=== PATIENT | male | born 1945 | race Caucasian/White ===

== ENCOUNTER 2016-08-30 09:10 | Outpatient (CLI) | payer MEDICARE, OTHER | END 2016-08-30 09:11 | disposition home or self-care (01) | DX: Z53.9 Procedure and treatment not carried out, unspecified reason (principal) ==

== ENCOUNTER 2016-09-02 07:46 | Outpatient (CLI) | payer MEDICARE, OTHER | END 2016-09-02 07:47 | disposition home or self-care (01) | DX: R42 Dizziness and giddiness (principal); Z12.5 Encounter for screening for malignant neoplasm of prostate | CPT/HCPCS: 80053; 85025; G0103 ==

== ENCOUNTER 2017-04-02 12:22 | Outpatient (CLI) | payer MEDICARE, OTHER | END 2017-04-02 12:23 | disposition home or self-care (01) | LOC: LAB 12:22 | PROVIDERS: ATTEND Family Medicine | DX: R97.20 Elevated prostate specific antigen [PSA] (principal) | CPT/HCPCS: 36415; 84153 ==

== ENCOUNTER 2017-12-23 04:06 | Emergency (ER) | payer MEDICARE, OTHER ==
[2017-12-23 04:20] VITALS: BP 157/86
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
== END 2017-12-23 04:29 | disposition home or self-care (01) ==
LOC: ED 04:06
DX: T78.40XA Allergy, unspecified, initial encounter (principal); X58.XXXA Exposure to other specified factors, initial encounter
CPT/HCPCS: 99282; 99283

== ENCOUNTER 2017-12-31 15:03 | Outpatient (CLI) | payer MEDICARE, OTHER | END 2017-12-31 15:04 | disposition home or self-care (01) | LOC: LAB 15:03 | PROVIDERS: ATTEND Family Medicine | DX: N40.1 Benign prostatic hyperplasia with lower urinary tract symptoms (principal) | CPT/HCPCS: 36415; 84153 ==

== ENCOUNTER 2019-01-17 10:41 | Emergency (ER) | payer MEDICARE, OTHER ==
[2019-01-17 11:09] LABS: BASOPHILS % (AUTO) 0.7 %; EOSINOPHILS # (AUTO) 0.3 10^3/uL (0.0-0.7); EOSINOPHILS % (AUTO) 4.5 %; HGB - HEMOGLOBIN 13.8 g/dL (14.0-18.0); LYMPHOCYTES # (AUTO) 1.4 10^3/uL (1.5-3.5); MEAN CORPUSCULAR HEMOGLOBIN 28.8 pg (27.0-31.0); MEAN CORPUSCULAR HGB CONC 32.1 g/dL (32.0-36.0); MEAN CORPUSCULAR VOLUME 89.8 fL (80.0-94.0); MEAN PLATELET VOLUME 8.6 fL (7.4-11.4); MONOCYTES # (AUTO) 0.6 10^3/uL (0.0-1.0); NEUTROPHILS # (AUTO) 3.3 10^3/uL (1.5-6.6); NEUTROPHILS % (AUTO) 59.4 %; PLT - PLATELET COUNT 247 10^3/uL (130-450); RED BLOOD COUNT 4.79 10^6/uL (4.70-6.10); RED CELL DISTRIBUTION WIDTH 13.2 % (12.0-15.0); WHITE BLOOD COUNT 5.6 x10^3/uL (4.8-10.8)
--- NOTE | 2019-01-17 11:29 | ED Physician Documentation ---
PD HPI DYSPNEA - Stated complaint Stated Complaint: AFIB - Chief complaint Chief Complaint: Cardiac - History obtained from History obtained from: Patient - History of Present Illness Timing - onset: Today (he was found to be in atrial flutter today when arrived for cardiac rehab. Sent to ER for evaluation. He is feeling okay, with maybe some lightheadedness. He has had feeling of lightheadedness for minutes at a time over the past few weeks. He is 5 weeks s/p CABG at [facility] and doing well. Has had cardiac rehab for the past 3 weeks.), Unknown Timing - onset during: Light activity Timing - details: Gradual onset (not sure of onset as he does not really feel the heart rate going fast.), Still present Inciting event(s): No: URI Improved by: Rest Worsened by: Exertion (he does feel slightly lightheaded with activity this morning.) Associated symptoms: Chest pain / discomfort (sternal skeletal pain since surgery.). No: Fever, Cough, Wheezing, Bilateral edema Similar symptoms before: No diagnosis (has had lightheaded at times the past few weeks) Review of Systems Constitutional: denies: Fever, Chills Nose: denies: Rhinorrhea / runny nose, Congestion Throat: denies: Sore throat Cardiac: denies: Palpitations Respiratory: denies: Dyspnea, Cough GI: denies: Abdominal Pain, Nausea, Vomiting, Diarrhea Musculoskeletal: denies: Extremity swelling Neurologic: denies: Focal weakness, Numbness, Near syncope PD PAST MEDICAL HISTORY - Past Medical History Cardiovascular: Hypertension, Angina Respiratory: None Neuro: None Endocrine/Autoimmune: None - Past Surgical History Cardiovascular: CABG (5 weeks ago) - Present Medications Home Medications: Ambulatory Orders Medication Instructions Recorded Confirmed Amiodarone HCl 200 mg PO DAILY #30 tablet 01/17/19 Amiodarone HCl 400 mg PO BID #14 tablet 01/17/19 Apixaban [Eliquis] 5 mg PO DAILY #30 tablet 01/17/19 Clopidogrel [Plavix] 75 mg PO DAILY 01/17/19 01/17/19 Levothyroxine [Synthroid] 100 mcg PO DAILY 01/17/19 01/17/19 - Allergies Allergies/Adverse Reactions: Allergies Allergy/AdvReac Type Severity Reaction Status Date / Time aspirin Allergy Hives Verified 01/17/19 10:49 diclofenac [From Voltaren] Allergy Rash Verified 01/17/19 10:49 peanut Allergy Hives Verified 01/17/19 10:49 - Social History Does the pt smoke?: No Smoking Status: Never smoker PD ED PE NORMAL - Vitals Vital signs reviewed: Yes - General General: Alert and oriented X 3, Well developed/nourished - Neck Neck: Supple, no meningeal sign, No adenopathy - Cardiac Cardiac: No murmur, Other (healing chestwall incision without infection). No: RRR (regular, slightly fast) - Respiratory Respiratory: Clear bilaterally - Abdomen Abdomen: Soft, Non tender - Derm Derm: Normal color, Warm and dry - Neuro Neuro: Alert and oriented X 3, No motor deficit, Normal speech Results - Vitals Vitals: Vital Signs - 24 hr 01/17/19 01/17/19 01/17/19 10:46 11:30 12:06 Temperature 35.5 C L Heart Rate 97 95 89 Respiratory 19 18 18 Rate Blood Pressure 115/77 111/76 104/85 H O2 Saturation 100 98 99 01/17/19 01/17/19 01/17/19 12:47 12:48 13:11 Temperature Heart Rate 78 69 79 Respiratory 14 12 18 Rate Blood Pressure 110/73 110/73 129/78 O2 Saturation 97 98 99 Oxygen O2 Source Room air - EKG (time done) 10:46 Rate: Rate (enter#) (99) Rhythm: Atrial flutter [place]: Normal Ischemia: Normal ST segments. No: ST elevation c/w ischemia, ST depression Compare to prior EKG: Changed from prior EKG (from cardiac rehab last week, though one session has small baseline and looks like it could have been flutter, with rate 120s. ) - Labs Labs: Laboratory Tests 01/17/19 01/17/19 01/17/19 10:58 10:58 10:58 WBC 5.6 RBC 4.79 Hgb 13.8 L Hct 43.0 MCV 89.8 MCH 28.8 MCHC 32.1 RDW 13.2 Plt Count 247 MPV 8.6 Neut # (Auto) 3.3 Lymph # (Auto) 1.4 L [place] # (Auto) 0.6 Eos # (Auto) 0.3 Baso # (Auto) 0.0 Absolute Nucleated RBC 0.00 Nucleated RBC % 0.0 Sodium 139 Potassium 3.5 Chloride 102 Carbon Dioxide 27 Anion Gap 10.0 BUN 15 Creatinine 1.1 Estimated GFR (MDRD) 65 L Glucose 96 Calcium 9.3 Magnesium 1.9 Total Bilirubin 0.5 AST 18 ALT 14 Alkaline Phosphatase 90 Total Protein 7.1 Albumin 3.9 Globulin 3.2 Albumin/Globulin Ratio 1.2 Lipase 46 PD MEDICAL DECISION MAKING - ED course Complexity details: considered differential (atrial flutter. Likely has had it intermittently, given his symptoms of occasional lightheadedness in the past 2-3 weeks. Looking at prior cardiac rehab rhythm strips, he might had had it last week with HR response to 130-140 during the session.), d/w patient, d/w clinical education consultant (Dr. Grace, who wants the patient started on Amiodarone 400 bid for a week then 200 daily. Also Eliquis. No need to try for rhythm control during ER, as likely intermittent. ) Departure - Departure Disposition: 01 Home, Self Care Clinical Impression: Atrial flutter with controlled response Condition: Stable Record reviewed to determine appropriate education?: Yes Instructions: ED Paroxysmal Atrial Flutter Follow-Up: Jadiel Tristan MD [Primary Care Provider] - Natalia Grace MD [Physician No Access] - Prescriptions: Amiodarone HCl 200 mg PO DAILY #30 tablet Amiodarone HCl 400 mg PO BID #14 tablet Apixaban [Eliquis] 5 mg PO DAILY #30 tablet Comments: Dr. Grace directed me to write prescriptions for you to try to control the rhythm with a medicine called amiodarone. He will be taking 400 mg twice daily for the first week to build up the amount in your system and then [address] daily after that. Dr[address] Grace also wanted you to start a blood thinner called Eliquis daily. He directed you to stop the Plavix. The atrial fibrillation and flutter are common post heart surgery because of inflammation of the heart muscle tissue in the pericardium. You are likely been in and out of the A. fib and flutter episodically and is just happened to be caught while you are at rehab today. Call Dr. Lindsay Oliveira's office for a follow-up appointment. Call today for an appointment in this week or early next week at the direction of Dr. Grace. Your descriptions were transmitted to [facility] at your request. Discharge Date/Time: 01/17/19 13:11
[2019-01-17 11:42] LABS: ALBUMIN 3.9 g/dL (3.2-5.5); ALBUMIN/GLOBULIN RATIO 1.2 (1.0-2.2); BILIRUBIN,TOTAL 0.5 mg/dL (0.2-1.0); CALCIUM 9.3 mg/dL (8.5-10.3); CREATININE 1.1 mg/dL (0.6-1.2); TOTAL PROTEIN 7.1 g/dL (6.7-8.2)
--- NOTE | 2019-01-17 11:52 | XRAY Report ---
Reason: cp Procedure Date: 01/17/2019 Accession Number: [id number] / [id number] Procedure: XR - Chest 1 View X-Ray CPT Code: 52475 FULL RESULT: EXAM: CHEST RADIOGRAPHY EXAM DATE: 01/17/2019 11:25 AM HISTORY: Chest pain COMPARISON: CHEST AP () 12/06/2018 4:06 AM TECHNIQUE: Single View FINDINGS: Lungs/Pleura: The lungs are clear. No consolidation, edema or pleural effusion. Improved aeration compared to prior. Cardiomediastinal silhouette: Postsurgical. Normal heart size. Other: None. IMPRESSION: No acute disease. RADIA
[2019-01-17] MEDS ORDERED: AMIODARONE 200 MG TABLET PO STA (11:59)
[2019-01-17] MEDS ORDERED: METOPROLOL 5 MG/5 ML VIAL IVP STA (11:59)
[2019-01-17 13:12] VITALS: BP 129/78
== END 2019-01-17 13:11 | disposition home or self-care (01) ==
LOC: ED 10:41
DX: I48.92 Unspecified atrial flutter (principal); Z95.1 Presence of aortocoronary bypass graft; I10 Essential (primary) hypertension
CPT/HCPCS: 36415; 71045; 80053; 83690; 83735; 85025; 93005; 96374; 99284; A9270

== ENCOUNTER 2019-02-23 11:35 | Outpatient (CLI) | payer MEDICARE, OTHER ==
[2019-02-23 12:03] LABS: CALCIUM 9.3 mg/dL (8.5-10.3); CREATININE 1.2 mg/dL (0.6-1.2)
== END 2019-02-23 11:36 | disposition home or self-care (01) ==
LOC: LAB 11:35
PROVIDERS: ATTEND Nurse Practitioner
DX: I21.4 Non-ST elevation (NSTEMI) myocardial infarction (principal); I48.92 Unspecified atrial flutter; E03.9 Hypothyroidism, unspecified; I25.810 Atherosclerosis of coronary artery bypass graft(s) without angina pectoris
CPT/HCPCS: 36415; 80048; 84443

== ENCOUNTER 2019-04-06 09:06 | Outpatient (CLI) | payer MEDICARE, OTHER ==
[2019-04-06 10:03] LABS: CHOL/HDL RATIO 4.6 (<5.0); CHOLESTEROL 188 mg/dL; HDL CHOLESTEROL 41 mg/dL; LDL CHOLESTEROL,CALCULATED 121 mg/dL; VLDL CHOLESTEROL 26 mg/dL
== END 2019-04-06 09:07 | disposition home or self-care (01) ==
LOC: LAB 09:06
PROVIDERS: ATTEND Nurse Practitioner
DX: I25.810 Atherosclerosis of coronary artery bypass graft(s) without angina pectoris (principal)
CPT/HCPCS: 36415; 80061; 83721

== ENCOUNTER 2019-05-18 12:08 | Outpatient (CLI) | payer MEDICARE, OTHER ==
[2019-05-18 12:58] LABS: THYROID STIMULATING HORMONE 1.38 uIU/mL (0.34-5.60)
[2019-05-18 13:00] LABS: FREE T4 (FREE THYROXINE) 1.09 ng/dL (0.58-1.64)
== END 2019-05-18 12:09 | disposition home or self-care (01) ==
LOC: LAB 12:08
PROVIDERS: ATTEND Family Medicine
DX: E03.9 Hypothyroidism, unspecified (principal)
CPT/HCPCS: 36415; 84439; 84443

== ENCOUNTER 2019-10-17 10:29 | Outpatient (CLI) | payer MEDICARE, OTHER ==
[2019-10-17 11:20] LABS: CHOLESTEROL 163 mg/dL; HDL CHOLESTEROL 41 mg/dL; LDL CHOLESTEROL,CALCULATED 100 mg/dL; LDL/HDL RATIO 2.4 (<3.6); VLDL CHOLESTEROL 22 mg/dL
== END 2019-10-17 10:30 | disposition home or self-care (01) ==
LOC: LAB 10:29
PROVIDERS: ATTEND Internal Medicine Cardiovascular Disease
DX: E78.5 Hyperlipidemia, unspecified (principal)
CPT/HCPCS: 36415; 80061; 83721

== ENCOUNTER 2020-01-26 09:49 | Outpatient (CLI) | payer MEDICARE, OTHER ==
[2020-01-26 10:30] LABS: CHOLESTEROL 174 mg/dL; HDL CHOLESTEROL 43 mg/dL; LDL CHOLESTEROL,CALCULATED 110 mg/dL; LDL/HDL RATIO 2.6 (<3.6); VLDL CHOLESTEROL 21 mg/dL
== END 2020-01-26 09:50 | disposition home or self-care (01) ==
LOC: LAB 09:49
PROVIDERS: ATTEND Internal Medicine Cardiovascular Disease
DX: E78.5 Hyperlipidemia, unspecified (principal)
CPT/HCPCS: 36415; 80061; 83721

== ENCOUNTER 2020-05-10 13:44 | Outpatient (CLI) | payer MEDICARE, OTHER ==
[2020-05-10 14:57] LABS: THYROID STIMULATING HORMONE 0.21 uIU/mL (0.34-5.60)
[2020-05-10 14:59] LABS: FREE T4 (FREE THYROXINE) 1.1 ng/dL (0.58-1.64)
--- OUTSIDE RECORDS SUMMARY | 2020-05-16 01:13 | EXTERNAL MEDICAL SUMMARY RPT | Continuity of Care Document ---
:1945 Demographics Phone Unavailable Preferred Language Unknown Marital Status Unknown Catholic Affiliation Unknown Race Unknown Ethnic Group Unknown Author Organization [facility] Address [address] [place] [address] Phone Care Team Providers Name Role Phone Tristan Unavailable Unavailable Problems date description facility 2020-05-10 13:44 HYPOTHYROIDISM, [facility]PECIF[facility] Allergies date description facility NO KNOWN ALLERGIES [facility] NO ALLERGY INFORMATION AVAILABLE [facility] SULFA (SULFONAMIDE ANTIBIOTICS) [facility] CEPHALEXIN [facility] CIPROFLOXACIN [facility] LANSOPRAZOLE [facility] HYDROCODONE-ACETAMINOPHEN [facility] [id number] [facility] peanut [facility] aspirin [facility] diclofenac [facility] Results test status date ordered by attending specimen luis e null F 2020-05-10 [email or web address] [facility] 2020-05 14:22:00 14:20:00 null F 2020-05-10 [email or web address] [facility] 2020-05 14:22:00 14:20:00 facility observation status value reference units lab abnor mal line notes [facility] F 1.10 0.58-1.64 ng/dL N Biotin at >10 Medical Center n g/mL concentr ation may caus e signific ant interfer ence. [facility] F 0.21 0.34-5.60 uIU/m L [facility] L test status date ordered by attending specimen luis e null F 2020-05-10 [email or web address] [facility] 2020-05 14:22:00 14:20:00 facility observation status value reference units lab abnor mal line range code notes [facility] F 0.21 0.34-5.60 uIU/mL L [facility] Social History date description facility [id number]
== END 2020-05-10 13:45 | disposition home or self-care (01) ==
LOC: LAB 13:44
PROVIDERS: ATTEND Family Medicine
DX: E03.9 Hypothyroidism, unspecified (principal)
CPT/HCPCS: 36415; 84439; 84443

== ENCOUNTER 2020-07-26 12:20 | Outpatient (CLI) | payer MEDICARE, OTHER ==
[2020-07-26 15:38] LABS: THYROID STIMULATING HORMONE 0.69 uIU/mL (0.34-5.60)
[2020-07-26 15:40] LABS: FREE T4 (FREE THYROXINE) 0.95 ng/dL (0.58-1.64)
== END 2020-07-26 12:21 | disposition home or self-care (01) ==
LOC: LAB.S 12:20
PROVIDERS: ATTEND Family Medicine
DX: E03.9 Hypothyroidism, unspecified (principal)
CPT/HCPCS: 36415; 84439; 84443

== ENCOUNTER 2020-11-26 09:50 | Outpatient (CLI) | payer MEDICARE, OTHER ==
[2020-11-26 10:19] LABS: CHOL/HDL RATIO 5.2 (<5.0); CHOLESTEROL 263 mg/dL; HDL CHOLESTEROL 51 mg/dL; LDL CHOLESTEROL,CALCULATED 189 mg/dL; LDL/HDL RATIO 3.7 (<3.6); TRIGLYCERIDES 114 mg/dL; VLDL CHOLESTEROL 23 mg/dL
== END 2020-11-26 09:51 | disposition home or self-care (01) ==
LOC: LAB 09:50
PROVIDERS: ATTEND Internal Medicine Cardiovascular Disease
DX: E78.5 Hyperlipidemia, unspecified (principal)
CPT/HCPCS: 36415; 80061; 83721

== ENCOUNTER 2021-03-22 10:02 | Outpatient (CLI) | payer MEDICARE, OTHER ==
[2021-03-22 10:38] LABS: ALBUMIN 4.3 g/dL (3.2-5.5); ALBUMIN/GLOBULIN RATIO 1.5 (1.0-2.2); ALKALINE PHOSPHATASE 72 IU/L (42-121); ALT ALANINE AMINOTRANSFERASE 21 IU/L (10-60); AST ASPARTATE AMINOTRANSFERASE 22 IU/L (10-42); BILIRUBIN,TOTAL 1.1 mg/dL (0.2-1.0); BUN - BLOOD UREA NITROGEN 17 mg/dL (6-20); CALCIUM 9.2 mg/dL (8.5-10.3); CARBON DIOXIDE - CO2 27 mmol/L (21-32); CHLORIDE 102 mmol/L (101-111); CHOL/HDL RATIO 1.9 (<5.0); CHOLESTEROL 87 mg/dL; CREATININE 1.1 mg/dL (0.6-1.2); GFR - MDRD 65 (>89); GLUCOSE 100 mg/dL (70-100); HDL CHOLESTEROL 46 mg/dL; LDL CHOLESTEROL,CALCULATED 25 mg/dL; LDL/HDL RATIO 0.5 (<3.6); POTASSIUM 3.9 mmol/L (3.5-5.0); SODIUM 137 mmol/L (135-145); TOTAL PROTEIN 7.2 g/dL (6.7-8.2); TRIGLYCERIDES 80 mg/dL; VLDL CHOLESTEROL 16 mg/dL
== END 2021-03-22 10:03 | disposition home or self-care (01) ==
LOC: LAB 10:02
PROVIDERS: ATTEND Internal Medicine Cardiovascular Disease
DX: E78.5 Hyperlipidemia, unspecified (principal)
CPT/HCPCS: 36415; 80053; 80061; 83721

== ENCOUNTER 2022-04-18 11:02 | Outpatient (CLI) | payer MEDICARE, OTHER ==
[2022-04-18 11:40] LABS: CHOL/HDL RATIO 2.6 (<5.0); CHOLESTEROL 111 mg/dL; HDL CHOLESTEROL 43 mg/dL; LDL CHOLESTEROL,CALCULATED 50 mg/dL; LDL/HDL RATIO 1.2 (<3.6); TRIGLYCERIDES 89 mg/dL; VLDL CHOLESTEROL 18 mg/dL
== END 2022-04-18 11:03 | disposition home or self-care (01) ==
LOC: LAB 11:02
PROVIDERS: ATTEND Internal Medicine Cardiovascular Disease
DX: E78.5 Hyperlipidemia, unspecified (principal)
CPT/HCPCS: 36415; 80061; 83721

== ENCOUNTER 2022-06-04 12:58 | Emergency (ER) | payer MEDICARE, OTHER ==
--- NOTE | 2022-06-04 13:33 | ED Physician Documentation ---
History of Present Illness - Stated complaint Stated Complaint: GLF/FACE INJ - Chief complaint Chief Complaint: Trauma Hd/Nk - History obtained from History obtained from: Patient - Additonal information Additional information: This is A 76-year-old gentleman who presents after a fall. The patient was actually in route to the hospital after testing positive for COVID yesterday because he was feeling somewhat weak and had a deep cough at home and had an episode of dizziness at home earlier today when he got up from the couch. He then was being led by his into the hospital for an evaluation when he felt unsteady on his feet in the parking lot and states that he started falling and could not stop himself, his was holding onto his arm so he was lead slowly to the ground. He did hit the front of his face on the ground, did not lose consciousness. He sustained a upper lip laceration but denies any other injuries in the fall, denies any neck pain, extremity injuries, back pain or pelvis pain and was able to get up with assistance of bystanders in the parking lot. He states that he was coming into the hospital because of his COVID symptoms and he is concerned that he may be somewhat dehydrated. He has had some generalized body aches, cough, but no chest pain, no shortness of breath, no abdominal pain, no nausea vomiting or diarrhea. He has been tolerating p.o. and has been trying to drink Gatorade and stay hydrated but thinks he may not have been drinking enough. He denies any focal weakness or numbness, no facial weakness or numbness, no confusion or change in vision or change in speech, no ataxia or change in coordination. He is on Plavix for prior CABG, And also takes metoprolol. He is no longer on amiodarone or aspirin or Eliquis. 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 Review of Systems Constitutional: reports: Fever, Myalgias, Fatigue Eyes: reports: Reviewed and negative Ears: reports: Reviewed and negative Nose: reports: Reviewed and negative Throat: reports: Reviewed and negative Cardiac: denies: Chest pain / pressure, Palpitations, Pedal edema, Calf pain Respiratory: reports: Cough. denies: Dyspnea, Hemoptysis, Wheezing GI: reports: Reviewed and negative : reports: Reviewed and negative Skin: reports: Abrasion (s) Musculoskeletal: reports: Reviewed and negative Neurologic: reports: Near syncope, Head injury. denies: Generalized weakness, Focal weakness, Numbness, Difficulty speaking, Syncope, Seizure, Confused, Altered mental status, Unresponsive, Headache, LOC Psychiatric: reports: Reviewed and negative Endocrine: reports: Reviewed and negative Immunocompromised: reports: Reviewed and negative PD PAST MEDICAL HISTORY - Past Medical History Cardiovascular: Hypertension, Angina Respiratory: None Neuro: None Endocrine/Autoimmune: None - Past Surgical History Ortho: Spine surgery Cardiovascular: CABG (5 weeks ago) HEENT: Cataracts, Tonsil/Adenoidectomy - Present Medications Home Medications: Ambulatory Orders Medication Instructions Recorded Confirmed Clopidogrel [Plavix] 75 mg PO DAILY 01/17/19 06/04/22 Evolocumab [Repatha Syringe] 140 mg SQ Q28D 06/04/22 06/04/22 Levothyroxine [Synthroid] 88 mcg PO QDAC 06/04/22 06/04/22 Metoprolol Succinate [Toprol Xl] 25 mg PO DAILY 06/04/22 06/04/22 Nirmatrelvir/Ritonavir [Paxlovid] 1 kit PO BID 5 Days #1 kit 06/04/22 Rosuvastatin Calcium [Crestor] 10 mg PO HS 06/04/22 06/04/22 - Allergies Allergies/Adverse Reactions: Allergies Allergy/AdvReac Type Severity Reaction Status Date / Time aspirin Allergy Hives Verified 06/04/22 13:17 diclofenac [From Voltaren] Allergy Rash Verified 06/04/22 13:17 peanut Allergy Hives Verified 06/04/22 13:17 [id number]-CoF Reductase Allergy Unknown Verified 06/04/22 13:17 Inhibitor - Social History Does the pt smoke?: No Smoking Status: Never smoker Does the pt drink ETOH?: Yes PD ED PE NORMAL - Vitals Vital signs reviewed: Yes - General General: Alert and oriented X 3, No acute distress, Well developed/nourished - HEENT HEENT: PERRL, EOMI, Ears normal, Moist mucous membranes, Pharynx benign, Dentition benign, Other (small upper lip abrasion) - Neck Neck: Supple, no meningeal sign, No bony TTP, No JVD - Cardiac Cardiac: RRR, No murmur, No gallop, No rub, Strong equal pulses - Respiratory Respiratory: No respiratory distress, Clear bilaterally - Abdomen Abdomen: Normal bowel sounds, Soft, Non tender, Non distended - Back Back: No CVA TTP, No spinal TTP - Derm Derm: Normal color, Warm and dry, No rash, Other (few light abrasions on both hands) - Extremities Extremities: No deformity, No tenderness to palpate, Normal ROM s pain, No edema, No calf tenderness / cord - Neuro Neuro: Alert and oriented X 3, cashier wrapper 2-12 intact, No motor deficit, No sensory deficit, Normal speech Eye Opening: Spontaneous Motor: Obeys Commands Verbal: Oriented GCS Score: 15 - Psych Psych: Normal mood, Normal affect Results - Vitals Vitals: Vital Signs - 24 hr 06/04/22 06/04/22 06/04/22 13:10 14:18 16:10 Temperature 37.3 C 37.4 C Heart Rate 84 79 80 Respiratory 18 26 H 23 Rate Blood Pressure 98/65 95/65 107/77 O2 Saturation 100 97 98 Oxygen O2 Source Room air - EKG (time done) No standard instances Rhythm: NSR, Other (Frequent PVCs) Ischemia: Normal ST segments Compare to prior EKG: Changed from prior EKG (Prior EKG on file shows atrial fibrillation/flutter.) Computer interpretation: Agree with computer - Labs Labs: Laboratory Tests 06/04/22 06/04/22 06/04/22 13:28 13:28 13:28 WBC 5.4 RBC 4.72 Hgb 14.1 Hct 42.0 MCV 89.0 MCH 29.9 MCHC 33.6 RDW 12.8 Plt Count 167 MPV 8.8 Neut # (Auto) 3.8 Lymph # (Auto) 0.7 L [place] # (Auto) 0.8 Eos # (Auto) 0.0 Baso # (Auto) 0.0 Absolute Nucleated RBC 0.00 Nucleated RBC % 0.0 PT 14.4 H INR 1.3 H Sodium 132 L Potassium 3.7 Chloride 98 L Carbon Dioxide 22 Anion Gap 12.0 BUN 22 H Creatinine 1.2 Estimated GFR (MDRD) 59 L Glucose 117 H Calcium 8.6 Total Bilirubin 0.7 AST 17 ALT 14 Alkaline Phosphatase 55 Troponin I High Sens Total Protein 6.8 Albumin 3.7 Globulin 3.1 Albumin/Globulin Ratio 1.2 Lipase 47 Urine Color Urine Clarity Urine pH Ur Specific [place] Urine Protein Urine Glucose (UA) Urine Ketones Urine Occult Blood Urine Nitrite Urine Bilirubin Urine Urobilinogen Ur Leukocyte Esterase Ur Microscopic Review Urine Culture Comments 06/04/22 06/04/22 06/04/22 13:28 14:14 14:40 WBC RBC Hgb Hct MCV MCH MCHC RDW Plt Count MPV Neut # (Auto) Lymph # (Auto) [place] # (Auto) Eos # (Auto) Baso # (Auto) Absolute Nucleated RBC Nucleated RBC % PT INR Sodium Potassium Chloride Carbon Dioxide Anion Gap BUN Creatinine Estimated GFR (MDRD) Glucose Calcium Total Bilirubin AST ALT Alkaline Phosphatase Troponin I High Sens 5.7 6.3 Total Protein Albumin Globulin Albumin/Globulin Ratio Lipase Urine Color DARK YELLOW Urine Clarity CLEAR Urine pH 6.0 Ur Specific [place] >=1.030 H Urine Protein NEGATIVE Urine Glucose (UA) NEGATIVE Urine Ketones TRACE Urine Occult Blood TRACE-INTA Urine Nitrite NEGATIVE Urine Bilirubin NEGATIVE Urine Urobilinogen 0.2 (NORMAL) Ur Leukocyte Esterase NEGATIVE Ur Microscopic Review NOT INDICATED Urine Culture Comments NOT INDICATED - Rads (name of study) No standard instances Radiology: Final report received PD Medical Decision Making - ED course Complexity details: reviewed old records, reviewed results, re-evaluated patient, considered differential, d/w patient, d/w family ED course: This is a 76-year-old male who presents with known COVID infection after a positive home test who has had a fall today as well as some generalized weakness and coughing. He is well-appearing on physical exam aside from a small shallow laceration/abrasion of the Mid upper lip. His vital signs here are stable and he is nontoxic-appearing. He is oxygenating well on room air. We obtained labs due to fall as well as known COVID infection to evaluate for possible elec trolyte disturbance, dehydration, or signs of infection, or other contributing factors to his dizziness and fall today. Labs are largely stable, CBC reassuring, mild lymphopenia as expected with his COVID diagnosis, his BUN is slightly up from baseline but not substantially so. His troponin is negative x2. Chest x-ray reveals some nonspecific left-sided opacity versus atelectasis and a head CT is negative for any acute findings. The patient is neurologic exam here is normal and I have low suspicion for pontine stroke. I suspect that the patient had some dizziness related to his current viral illness and possible mild dehydration. He felt better after half liter of fluid. He does not require hospitalization for his COVID as he is oxygenating well on room air and his chest x-ray is stable. I did offer him paxlovid and discussed the potential risks versus benefits of taking this medication. The patient was ambulated and felt better on his feet and was subsequently discharged home in stable condition. Return precautions reviewed in detail with patient if he had increasing shortness of breath, increasing weakness or focal weakness, confusion or other new concerns Departure - Departure Disposition: 01 Home, Self Care Clinical Impression: Fall from ground level, COVID-19 Laceration of lip without complication Qualifiers: Encounter type: initial encounter Qualified Code(s): S01.511A - Laceration without foreign body of lip, initial encounter Condition: Good Instructions: ED Laceration Mouth, ED Fainting Unkn Cause Prescriptions: Nirmatrelvir/Ritonavir [Paxlovid] 1 kit PO BID 5 Days #1 kit Comments: Your labs are largely stable, you have possible mild dehydration and were given 1/2 L of normal saline. Your chest x-ray shows likely atelectasis but no focal pneumonia. Your head CT was normal. Your lip laceration did not require any sutures and this can just be kept clean with gentle soap and water at home and dab if it continues to ooze. Please rest for the next several days, and try to stay well-hydrated. You may feel somewhat dizzy and weak secondary to your COVID infection. I have prescribed paxlovid which is a medication that is being used for COVID infection to reduce the severity of illness in some patients. It can lead to nausea, vomiting and diarrhea in some patients but most people are tolerating it well. If you develop new or worsening symptoms, please return to the ER. Discharge Date/Time: 06/04/22 16:11
[2022-06-04 13:42] LABS: BASOPHILS % (AUTO) 0.4 %; HGB - HEMOGLOBIN 14.1 g/dL (14.0-18.0); LYMPHOCYTES # (AUTO) 0.7 10^3/uL (1.5-3.5); LYMPHOCYTES % (AUTO) 12.7 %; MEAN CORPUSCULAR HEMOGLOBIN 29.9 pg (27.0-31.0); MEAN CORPUSCULAR HGB CONC 33.6 g/dL (32.0-36.0); MEAN PLATELET VOLUME 8.8 fL (7.4-11.4); MONOCYTES # (AUTO) 0.8 10^3/uL (0.0-1.0); MONOCYTES % (AUTO) 15.7 %; NEUTROPHILS # (AUTO) 3.8 10^3/uL (1.5-6.6); NEUTROPHILS % (AUTO) 70.8 %; PLT - PLATELET COUNT 167 10^3/uL (130-450); RED BLOOD COUNT 4.72 10^6/uL (4.70-6.10); RED CELL DISTRIBUTION WIDTH 12.8 % (12.0-15.0); WHITE BLOOD COUNT 5.4 x10^3/uL (4.8-10.8)
[2022-06-04 13:54] LABS: ALBUMIN 3.7 g/dL (3.2-5.5); ALBUMIN/GLOBULIN RATIO 1.2 (1.0-2.2); BILIRUBIN,TOTAL 0.7 mg/dL (0.2-1.0); CALCIUM 8.6 mg/dL (8.5-10.3); CREATININE 1.2 mg/dL (0.6-1.2); INR 1.3 (0.8-1.2); POTASSIUM 3.7 mmol/L (3.5-5.0); PT - PROTHROMBIN TIME 14.4 secs (9.9-12.6); TOTAL PROTEIN 6.8 g/dL (6.7-8.2)
--- OUTSIDE RECORDS SUMMARY | 2022-06-04 14:00 | EXTERNAL MEDICAL SUMMARY RPT | Continuity of Care Document ---
:1945 Author Organization [facility] Address [address] [place] [address] Phone Allergies No information. Encounters No information. Functional Status No information. Immunizations No information. Medications No information. Problems date description facility 2022-05-22 13:37 Nonrheumatic aortic (valve) stenosis [facility] Procedures No information. Results/Labs test date author facility value unit interpret ation Result panel 1 (unknown) (no (unknown) (unknown) (no value) (units (unk nown) date) unknown) (unknown) (no (unknown) (unknown) +---------+ [phone] (uni ts (unknown) date) +--------- unknown) (unknown) (no (unknown) (unknown) +---------+ Hospital (uni ts (unknown) date) +--------- unknown) (unknown) (no (unknown) (unknown) + (uni ts (unknown) date) unknown) (unknown) (no (unknown) (unknown) [id number] (units (unkno wn) date) unknown) (unknown) (no (unknown) (unknown) 05/22/22 (units (unkno wn) date) unknown) (unknown) (no (unknown) (unknown) 1) Normal left (units (unknown) date) ventricular unknown) thickness, size, and systolic function (EF 55-60%). (unknown) (no (unknown) (unknown) [address] (units (unknown) date) unknown) (unknown) (no (unknown) (unknown) 12mmHg, severity (units (unknown) date) ratio 0.39). unknown) (unknown) (no (unknown) (unknown) 2) Basal to mid (units (unknown) date) inferior wall is unknown) hypokinetic. (unknown) (no (unknown) (unknown) 3) Normal right (units (unknown) date) ventricular size and unknown) function. (unknown) (no (unknown) (unknown) 4) There is mild to (unit s (unknown) date) moderate aortic unknown) stenosis (valve area 1.4cm2, mean gradient (unknown) (no (unknown) (unknown) 5) Compared to the (units (unknown) date) Echo done 12/12/2020, unknown) no significant change in aortic (unknown) (no (unknown) (unknown) 55-60%. Left (units (u nknown) date) ventricular systolic unknown) function appears normal without focal wall (unknown) (no (unknown) (unknown) : : [address] : (unit s (unknown) date) : unknown) (unknown) (no (unknown) (unknown) : : [id number] : : (units ( unknown) date) unknown) (unknown) (no (unknown) (unknown) : : [place] : (unit s (unknown) date) : unknown) (unknown) (no (unknown) (unknown) : : Phone: [phone] : : (unit s (unknown) date) unknown) (unknown) (no (unknown) (unknown) :Account #: (units (un known) date) [id number] Gender: unknown) Male BSA: 2.0 m2 : (unknown) (no (unknown) (unknown) :: 1945 (units (unknown) date) Age: 76 yrs BP: unknown) 117/72 mmHg: (unknown) (no (unknown) (unknown) :Hospital MRN #: (units (unknown) date) [id number] unknown) tion: Weight: 170 lb : (unknown) (no (unknown) (unknown) :Name: MUNDO (units (unknown) date) ANDRE Petty Study Date: unknown) 05/22/2022 Height: 73 in : (unknown) (no (unknown) (unknown) :Ordering Physician: (uni ts (unknown) date) Vidhu : unknown) (unknown) (no (unknown) (unknown) :Reason For Study: (units (unknown) date) Nonrheumatic Aortic unknown) Stenosis : (unknown) (no (unknown) (unknown) :Referring: PALIWAL, (uni ts (unknown) date) VIDHU : unknown) (unknown) (no (unknown) (unknown) :S M.DNathaly Alcaraziwsilvino (units (unknown) date) Performed By: Luz Elena unknown) Fannie : (unknown) (no (unknown) (unknown) sev ratio: 0.39 (units (unknown) date) unknown) (unknown) (no (unknown) (unknown) AV VR_phl: 0.36 (units (unknown) date) unknown) (unknown) (no (unknown) (unknown) WOO indexed to BSA (units (unknown) date) (cm2/m2): 0.70 unknown) (unknown) (no (unknown) (unknown) WOO(VTI)/BSA_phl: (units (unknown) date) 0.60 unknown) (unknown) (no (unknown) (unknown) Accession Number: (units (unknown) date) [id number] unknown) (unknown) (no (unknown) (unknown) Age/Sex: 76 / M Date (uni ts (unknown) date) of Service: unknown) (unknown) (no (unknown) (unknown) [place] [address] (unit s (unknown) date) unknown) (unknown) (no (unknown) (unknown) Ao V2 VTI: 46.2 cm (units (unknown) date) WOO(V,D): 1.3 cm2 unknown) (unknown) (no (unknown) (unknown) Ao V2 max: 228.5 (units (unknown) date) cm/sec LVOT Max Jeramy: unknown) 82.0 cm/sec (unknown) (no (unknown) (unknown) Ao V2 mean: 166.0 (units (unknown) date) cm/sec LV V1 max PG: unknown) 2.7 mmHg (unknown) (no (unknown) (unknown) Ao max P.0 mmHg (uni ts (unknown) date) LV V1 VTI: 17.8 cm unknown) (unknown) (no (unknown) (unknown) Ao mean P.0 (units (unknown) date) mmHg WOO(I,D): 1.4 unknown) cm2 (unknown) (no (unknown) (unknown) Aortic Valve: The (units (unknown) date) aortic valve is unknown) heavily calcified. There is moderately (unknown) (no (unknown) (unknown) Atria: The left (units (unknown) date) atrial size is unknown) normal. Right atrial size is normal. There is (unknown) (no (unknown) (unknown) : 1945 (units (unknown) date) Acct:[id number] unknown) (unknown) (no (unknown) (unknown) Doppler Measurements (uni ts (unknown) date) + Calculations unknown) (unknown) (no (unknown) (unknown) E/E' lat: 9.4 (units ( unknown) date) unknown) (unknown) (no (unknown) (unknown) E/E' med: 7.4 PA (units (unknown) date) mean P.0 mmHg unknown) (unknown) (no (unknown) (unknown) E/e' average: 8.4 (units (unknown) date) unknown) (unknown) (no (unknown) (unknown) EPSS: 0.30 cm (units ( unknown) date) unknown) (unknown) (no (unknown) (unknown) Echocardiogram (units (unknown) date) Report unknown) (unknown) (no (unknown) (unknown) Echocardiography (units (unknown) date) Report unknown) (unknown) (no (unknown) (unknown) Electronically (units (unknown) date) signed by: Xuan unknown) Bijal John on 05/22/2022 (unknown) (no (unknown) (unknown) FS: 36.4 % asc Aorta (uni ts (unknown) date) Diam: 3.3 cm unknown) (unknown) (no (unknown) (unknown) Great Vessels: The (units (unknown) date) IVC is of normal unknown) diameter and collapses greater than 50% (unknown) (no (unknown) (unknown) IVSd: 1.2 cm (units (u nknown) date) unknown) (unknown) (no (unknown) (unknown) Interpretation (units (unknown) date) Summary unknown) (unknown) (no (unknown) (unknown) [facility] (units (unknown) date) unknown) (unknown) (no (unknown) (unknown) [place] (units (unkno wn) date) unknown) (unknown) (no (unknown) (unknown) LA A2 area: 17.4 cm2 (uni ts (unknown) date) RA area: 13.5 cm2 unknown) (unknown) (no (unknown) (unknown) LA A4 area: 11.3 cm2 (uni ts (unknown) date) RA vol: 35.8 ml unknown) (unknown) (no (unknown) (unknown) LA dimension: 3.4 cm (uni ts (unknown) date) RA long axis: 4.3 cm unknown) (unknown) (no (unknown) (unknown) LA length (vol): 4.9 (uni ts (unknown) date) cm RA : 17.8 ml/m2 unknown) (unknown) (no (unknown) (unknown) LA vol index: 17.0 (units (unknown) date) ml/m2 unknown) (unknown) (no (unknown) (unknown) LA vol: 34.2 ml (units (unknown) date) unknown) (unknown) (no (unknown) (unknown) LV tobias. (units (unkno wn) date) diameter/BSA (cm/m2): unknown) 2.2 (unknown) (no (unknown) (unknown) LV sys. diameter/BSA (uni ts (unknown) date) (cm/m2): 1.4 unknown) (unknown) (no (unknown) (unknown) LVIDd: 4.4 cm LVOT (units (unknown) date) diam: 2.2 cm unknown) (unknown) (no (unknown) (unknown) LVIDs: 2.8 cm Ao (units (unknown) date) root diam: 3.5 cm unknown) (unknown) (no (unknown) (unknown) LVLd ap2: 7.1 cm (units (unknown) date) TAPSE_phl: 1.8 cm unknown) (unknown) (no (unknown) (unknown) LVLs ap2: 5.5 cm (units (unknown) date) unknown) (unknown) (no (unknown) (unknown) LVPWd: 0.90 cm (units (unknown) date) unknown) (unknown) (no (unknown) (unknown) Lat Peak E' Jeramy: 6.5 (uni ts (unknown) date) cm/sec unknown) (unknown) (no (unknown) (unknown) Left Ventricle: The (unit s (unknown) date) left ventricle is unknown) normal in size and wall thickness. (unknown) (no (unknown) (unknown) Loc: ECHO (units (unkn own) date) unknown) (unknown) (no (unknown) (unknown) MMode/2D (units (unkno wn) date) Measurements + unknown) Calculations (unknown) (no (unknown) (unknown) MV A max jeramy: 54.5 (units (unknown) date) cm/sec TR max PG: unknown) 21.2 mmHg (unknown) (no (unknown) (unknown) MV E max jeramy: 60.9 (units (unknown) date) cm/sec TR max jeramy: unknown) 235.0 cm/sec (unknown) (no (unknown) (unknown) MV E/A: 1.1 PA V2 (units (unknown) date) max: 129.0 cm/sec unknown) (unknown) (no (unknown) (unknown) MV V2 VTI: 19.4 cm (units (unknown) date) unknown) (unknown) (no (unknown) (unknown) MV V2 mean: 40.3 (units (unknown) date) cm/sec SV(LVOT): 64.6 unknown) ml (unknown) (no (unknown) (unknown) MV dec time: 0.23 (units (unknown) date) sec unknown) (unknown) (no (unknown) (unknown) MV mean P.0 mmHg (uni ts (unknown) date) unknown) (unknown) (no (unknown) (unknown) MVA(VTI): 3.3 cm2 (units (unknown) date) unknown) (unknown) (no (unknown) (unknown) Med Peak E' Jeramy: 8.2 (uni ts (unknown) date) cm/sec PA V2 mean: unknown) 76.6 cm/sec (unknown) (no (unknown) (unknown) Mitral Valve: The (units (unknown) date) mitral valve is unknown) normal in structure and function. There is (unknown) (no (unknown) (unknown) Ordering Provider: (units (unknown) date) Natalia Grace MD unknown) (unknown) (no (unknown) (unknown) Patient: (units (unkno wn) date) Andre Ervin MR#: unknown) M0 (unknown) (no (unknown) (unknown) Pericardium/ Pleura (unit s (unknown) date) There is no unknown) pericardial effusion. There is no pleural (unknown) (no (unknown) (unknown) Procedure: A (units (u nknown) date) two-dimensional unknown) transthoracic echocardiogram with color flow (unknown) (no (unknown) (unknown) Procedure: EC echo (units (unknown) date) doppler complete unknown) (unknown) (no (unknown) (unknown) Proximal septal (units (unknown) date) thickening is noted. unknown) The ejection fraction is estimated to be (unknown) (no (unknown) (unknown) Pulmonic Valve: The (unit s (unknown) date) pulmonic valve unknown) leaflets are thin and pliable; valve (unknown) (no (unknown) (unknown) RVD1 (basal): 3.9 cm (uni ts (unknown) date) LVLs ap4: 5.7 cm unknown) (unknown) (no (unknown) (unknown) Reading (units (unkno wn) date) Physician:03:25 PM unknown) (unknown) (no (unknown) (unknown) Right Ventricle: The (uni ts (unknown) date) right ventricle is unknown) normal in size and function. (unknown) (no (unknown) (unknown) Signed (units (unkno wn) date) unknown) (unknown) (no (unknown) (unknown) There is trace (units (unknown) date) tricuspid unknown) regurgitation. (unknown) (no (unknown) (unknown) Tricuspid Valve: The (uni ts (unknown) date) tricuspid valve is unknown) normal in structure and function. (unknown) (no (unknown) (unknown) (uni ts (unknown) date) unknown) (unknown) (no (unknown) (unknown) and Doppler was (units (unknown) date) performed. The unknown) patient was in sinus rhythm with heart rates (unknown) (no (unknown) (unknown) between 65-74 bpm (units (unknown) date) during the exam. unknown) (unknown) (no (unknown) (unknown) effusion. (units (unkn own) date) unknown) (unknown) (no (unknown) (unknown) elevated filling (units (unknown) date) pressures. unknown) (unknown) (no (unknown) (unknown) mild mitral (units (un known) date) regurgitation. unknown) (unknown) (no (unknown) (unknown) motion (units (unkno wn) date) abnormalities. Basal unknown) to mid inferior wall is hypokinetic. Diastolic (unknown) (no (unknown) (unknown) motion is normal. (units (unknown) date) There is a trace or unknown) physiologic amount of pulmonic (unknown) (no (unknown) (unknown) no Doppler evidence (unit s (unknown) date) for an interatrial unknown) shunt. (unknown) (no (unknown) (unknown) parameters suggest a (uni ts (unknown) date) pseudonormalization unknown) pattern, consistent with probable (unknown) (no (unknown) (unknown) reduced leaflet (units (unknown) date) mobility. There is unknown) mild to moderate aortic stenosis. Compared (unknown) (no (unknown) (unknown) regurgitation. (units (unknown) date) unknown) (unknown) (no (unknown) (unknown) stenosis. LVEF has (units (unknown) date) improved from 45-50% unknown) to 55-60% on this study. (unknown) (no (unknown) (unknown) stenosis. No aortic (unit s (unknown) date) regurgitation is unknown) present. (unknown) (no (unknown) (unknown) to the prior echo (units (unknown) date) study, there has been unknown) no change in the severity of aortic (unknown) (no (unknown) (unknown) with a sniff. This (units (unknown) date) suggests a low right unknown) atrial pressure of 3 mm Hg. Social History No information. Vital Signs No information.
[2022-06-04] MEDS ORDERED: SODIUM CHLORIDE 0.9% 500 ML IV STA (14:10)
--- NOTE | 2022-06-04 14:37 | CT Report ---
PROCEDURE: CT brain without contrast INDICATIONS: fall, covid + TECHNIQUE: Noncontrast 4.5 mm thick angled axial sections acquired from the foramen magnum to the vertex. For r adiation dose reduction, the following was used: automated exposure control, adjustment of mA and/or kV according to patient size. COMPARISON: None. FINDINGS: Image quality: Excellent. CSF spaces: Basal cisterns are patent. No extra-axial fluid collections. Ventricles are normal in size and shape. Brain: No midline shift. No intracranial masses or hemorrhage. Willis-white matter interface is norm al. Moderate atrophy and multifocal white matter chronic ischemic change noted. Atherosclerotic vascu lar calcification noted in the cavernous segments of both internal carotid arteries as well as the in tradural vertebral arteries. Skull and face: Calvarium and visualized facial bones are intact, without suspicious lesions. Sinuses: Visualized sinuses and mastoids are clear. IMPRESSION: Atrophy and chronic ischemic change without intracranial hemorrhage or mass effect Reviewed by: Skip Monroy MD on 06/04/2022 1:35 PM AKST Approved by: Skip Monroy MD on 06/04/2022 1:35 PM AKST Station ID: [id number]
[2022-06-04 14:50] LABS: BILIRUBIN,URINE NEGATIVE (NEGATIVE); GLUCOSE, URINE (UA) NEGATIVE (NEGATIVE); KETONES,URINE (UA) TRACE mg/dL (NEGATIVE); LEUKOCYTE ESTERASE, URINE NEGATIVE (NEGATIVE); NITRITE,URINE NEGATIVE (NEGATIVE); OCCULT BLOOD,URINE TRACE-INTA (NEGATIVE); PROTEIN,URINE NEGATIVE (NEGATIVE); UROBILINOGEN,URINE 0.2 (NORMAL) E.U./dL (NORMAL)
[2022-06-04 14:54] LABS: CLARITY,URINE CLEAR (CLEAR)
--- NOTE | 2022-06-04 15:06 | XRAY Report ---
PROCEDURE: Chest 1 View X-Ray INDICATIONS: chest pain TECHNIQUE: One view of the chest was acquired. COMPARISON: chest radiographs 01/17/2019. FINDINGS: Surgical changes and devices: Sternotomy wires and mediastinal clips are noted.. Lungs and pleura: No pleural effusions or pneumothorax. Possible mild patchy airspace opacities at t he right lower lung zones. Mediastinum: Mediastinal contours appear normal. Heart size is normal. Bones and chest wall: No suspicious bony lesions. Overlying soft tissues appear unremarkable. IMPRESSION: Mild patchy right lower lobe opacities could represent a mild or developing pneumonia versus atelecta sis or edema. Reviewed by: Brenden Hdez MD on 06/04/2022 3:04 PM PST Approved by: Brenden Hdez MD on 06/04/2022 3:04 PM PST Station ID: [id number]
[2022-06-04 16:11] VITALS: BP 107/77
== END 2022-06-04 16:11 | disposition home or self-care (01) ==
LOC: ED 12:58
DX: S01.511A Laceration without foreign body of lip, initial encounter (principal); W18.30XA Fall on same level, unspecified, initial encounter; U07.1 COVID-19; I10 Essential (primary) hypertension; Z79.02 Long term (current) use of antithrombotics/antiplatelets; Z95.1 Presence of aortocoronary bypass graft
CPT/HCPCS: 36415; 80053; 81001; 81003; 83690; 84484; 85025; 85610; 87086; 93005; 99284

== ENCOUNTER 2022-11-15 13:03 | Outpatient (CLI) | payer MEDICARE, OTHER | END 2022-11-15 13:04 | disposition home or self-care (01) | LOC: LAB 13:03 | PROVIDERS: ATTEND Family Medicine | DX: R97.20 Elevated prostate specific antigen [PSA] (principal); N40.1 Benign prostatic hyperplasia with lower urinary tract symptoms; R35.0 Frequency of micturition | CPT/HCPCS: 36415; 84153 ==

== ENCOUNTER 2022-12-03 08:00 | Outpatient (CLI) | payer MEDICARE, OTHER ==
[2022-12-03 16:02] LABS: BILIRUBIN,URINE NEGATIVE (NEGATIVE); CLARITY,URINE CLEAR (CLEAR); GLUCOSE, URINE (UA) NEGATIVE (NEGATIVE); KETONES,URINE (UA) NEGATIVE (NEGATIVE); LEUKOCYTE ESTERASE, URINE NEGATIVE (NEGATIVE); NITRITE,URINE NEGATIVE (NEGATIVE); OCCULT BLOOD,URINE NEGATIVE (NEGATIVE); PROTEIN,URINE NEGATIVE (NEGATIVE); UROBILINOGEN,URINE 0.2 (NORMAL) E.U./dL (NORMAL)
[2022-12-03 16:14] LABS: BACTERIA,URINE None Seen /HPF (None Seen); RBC,URINE 0-5 /HPF (0-5); SQUAMOUS EPITHELIAL CELL,UR NONE SEEN (<= Few); WBC,URINE 0-3 /HPF (0-3)
== END 2022-12-03 23:59 | disposition home or self-care (01) ==
LOC: LAB 08:00
PROVIDERS: ATTEND Urology
DX: R39.9 Unspecified symptoms and signs involving the genitourinary system (principal)
CPT/HCPCS: 81001; 87086

== ENCOUNTER 2022-12-24 14:38 | Outpatient (CLI) | payer MEDICARE, OTHER ==
[2022-12-24 14:51] LABS: BASOPHILS # (AUTO) 0.1 10^3/uL (0.0-0.1); BASOPHILS % (AUTO) 0.8 %; EOSINOPHILS # (AUTO) 0.2 10^3/uL (0.0-0.7); EOSINOPHILS % (AUTO) 3.1 %; HCT - HEMATOCRIT 42.4 % (42.0-52.0); HGB - HEMOGLOBIN 14.2 g/dL (14.0-18.0); LYMPHOCYTES # (AUTO) 1.6 10^3/uL (1.5-3.5); LYMPHOCYTES % (AUTO) 24.8 %; MEAN CORPUSCULAR HGB CONC 33.5 g/dL (32.0-36.0); MEAN CORPUSCULAR VOLUME 89.6 fL (80.0-94.0); MEAN PLATELET VOLUME 8.6 fL (7.4-11.4); MONOCYTES # (AUTO) 0.5 10^3/uL (0.0-1.0); MONOCYTES % (AUTO) 7.4 %; NEUTROPHILS # (AUTO) 4.1 10^3/uL (1.5-6.6); NEUTROPHILS % (AUTO) 63.6 %; PLT - PLATELET COUNT 217 10^3/uL (130-450); RED BLOOD COUNT 4.73 10^6/uL (4.70-6.10); WHITE BLOOD COUNT 6.5 x10^3/uL (4.8-10.8)
[2022-12-24 15:16] LABS: ALBUMIN 4.1 g/dL (3.2-5.5); ALBUMIN/GLOBULIN RATIO 1.8 (1.0-2.2); ALKALINE PHOSPHATASE 83 IU/L (42-121); ALT ALANINE AMINOTRANSFERASE 11 IU/L (10-60); AST ASPARTATE AMINOTRANSFERASE 16 IU/L (10-42); BILIRUBIN,TOTAL 0.5 mg/dL (0.2-1.0); BUN - BLOOD UREA NITROGEN 22 mg/dL (6-20); CALCIUM 9.5 mg/dL (8.5-10.3); CARBON DIOXIDE - CO2 31 mmol/L (21-32); CHLORIDE 106 mmol/L (101-111); CHOL/HDL RATIO 3.1 (<5.0); CHOLESTEROL 125 mg/dL; GFR - MDRD 72 (>89); GLUCOSE 94 mg/dL (74-104); HDL CHOLESTEROL 40 mg/dL; LDL CHOLESTEROL,CALCULATED 45 mg/dL; LDL/HDL RATIO 1.1 (<3.6); POTASSIUM 4.3 mmol/L (3.5-4.5); SODIUM 139 mmol/L (135-145); TOTAL PROTEIN 6.4 g/dL (6.4-8.9); TRIGLYCERIDES 199 mg/dL (48-352); VLDL CHOLESTEROL 40 mg/dL
[2022-12-24 17:11] LABS: THYROID STIMULATING HORMONE 0.62 uIU/mL (0.34-5.60)
== END 2022-12-24 14:39 | disposition home or self-care (01) ==
LOC: LAB 14:38
PROVIDERS: ATTEND Family Medicine
DX: E03.9 Hypothyroidism, unspecified (principal); Z79.899 Other long term (current) drug therapy; E78.5 Hyperlipidemia, unspecified
CPT/HCPCS: 36415; 80053; 80061; 83721; 84439; 84443; 85025

== ENCOUNTER 2023-12-29 09:56 | Outpatient (CLI) | payer MEDICARE, OTHER ==
[2023-12-29 10:27] LABS: CHOL/HDL RATIO 3.4 (<5.0); CHOLESTEROL 136 mg/dL; HDL CHOLESTEROL 40 mg/dL; LDL CHOLESTEROL,CALCULATED 67 mg/dL; LDL/HDL RATIO 1.7 (<3.6); TRIGLYCERIDES 144 mg/dL; VLDL CHOLESTEROL 29 mg/dL
== END 2023-12-29 09:57 | disposition home or self-care (01) ==
LOC: LAB 09:56
PROVIDERS: ATTEND Internal Medicine Cardiovascular Disease
DX: E78.5 Hyperlipidemia, unspecified (principal)
CPT/HCPCS: 36415; 80061; 83721